=== PATIENT | male | born 1970 | race Caucasian/White ===

== ENCOUNTER 2020-08-20 14:14 | Emergency (ER) | payer MEDICARE ==
[~2020-08-20] VITALS: Ht 188 cm; Wt 104.0 kg
[2020-08-20 14:51] VITALS: BP 141/86
[2020-08-20] MEDS ORDERED: ACETAMINOPHEN 325MG TABLET PO ONE (15:15)
[2020-08-20] MEDS ORDERED: TRAMADOL 50MG TABLET PO ONE ×2 (15:15→16:45)
[2020-08-20] MEDS ORDERED: BACITRACIN ZINC OINT UDPKT TOP ONE ×2 (16:30→16:45)
[2020-08-20] MEDS ORDERED: HYDR-4346 MT (17:05)
== END 2020-08-20 17:30 | disposition home or self-care (01) ==
LOC: ER 14:14 → EDBD 14:14 → ER 17:30
DX: S62.611A Displaced fracture of proximal phalanx of left index finger, initial encounter for closed fracture (principal); W18.39XA Other fall on same level, initial encounter; Y93.89 Activity, other specified; Y92.89 Other specified places as the place of occurrence of the external cause; Y99.8 Other external cause status
CPT/HCPCS: 29125; 73130; 99284